=== PATIENT | female | born 1970 | race Caucasian/White ===

== ENCOUNTER 2017-09-17 10:49 | Emergency (ER) | payer OTHER ==
[~2017-09-17] VITALS: Ht 167.6 cm; Wt 59.0 kg
[~2017-09-17 10:49] MED LIST: ALBIPROI; ALBU.083IS; ALBU3IS; ALBU3IS INH; ALBU90OI; ALBU90OI6; ALBU90OI6 INH; BENZ100A PO; Bactrim Ds Tab1 EACH PO; CEPH500; CEPH500 PO; CIPDEXSU; CIPR500 PO; CLIN150 PO; CODACE30 PO; CYCL10 PO; DIPH25 PO; DOXY100 PO; HYDACE5 PO; IBUP600 PO; IBUP800 PO; Keflex500 MG PO; LACT10SY PO; LORA1 PO; MONT10T PO; Mobic15 MG PO; NAPR500 PO; NEOPOLHCSU AD; Norco 5-325 Ta1 EACH PO; ONDA4 PO; ONDA8ODT MM; OXYACE5T; OXYACE5T PO; OXYACE7.5T PO; OXYC5 PO; PHENA200 PO; PROM25 PO; RANI150 PO; RXCEPH500 PO; RXCLIN PO; RXHYDACE PO; RXONDA4ODT MM; RXOXYACE PO; RXSULTRIDS PO; SULTRIDS PO; SULTRISS PO; TRAM50 PO; Vistaril25 MG PO; [UNRECOGNIZED DRUG - REMARK]
[2017-09-17] MEDS ORDERED: ERGO400 (10:56)
[2017-09-17] MEDS ORDERED: VITAMIN D32000 UNIT PO (11:00)
[2017-09-17] MEDS ORDERED: Hydroxyzine HCl50 MG PO (11:00)
[2017-09-17] MEDS ORDERED: MIRT15 PO (11:00)
[2017-09-17] MEDS ORDERED: PRISTIQ ER25 MG PO (11:01)
[2017-09-17] MEDS ORDERED: METPRE4DP PO (11:24)
[2017-09-17] MEDS ORDERED: Norco 5-325 Ta1 EACH PO (11:24)
== END 2017-09-17 11:32 | disposition home or self-care (01) ==
LOC: ER 10:49
DX: M25.511 Pain in right shoulder (principal); Z91.048 Other nonmedicinal substance allergy status; Z88.5 Allergy status to narcotic agent; Z91.013 Allergy to seafood; Z79.899 Other long term (current) drug therapy; J45.909 Unspecified asthma, uncomplicated
CPT/HCPCS: 99283

== ENCOUNTER 2017-09-18 04:29 | Emergency (ER) | payer OTHER ==
[~2017-09-18] VITALS: Ht 165.1 cm; Wt 63.5 kg
[~2017-09-18 04:29] MED LIST changes: +ERGO400; +Hydroxyzine HCl50 MG PO; +METPRE4DP PO; +MIRT15 PO; +PRISTIQ ER25 MG PO; +VITAMIN D32000 UNIT PO
== END 2017-09-18 05:17 | disposition home or self-care (01) ==
LOC: ER 04:29
DX: M79.605 Pain in left leg (principal); M79.604 Pain in right leg; R11.0 Nausea; Z88.8 Allergy status to other drugs, medicaments and biological substances; Z88.5 Allergy status to narcotic agent; Z91.048 Other nonmedicinal substance allergy status; Z79.899 Other long term (current) drug therapy; Z79.52 Long term (current) use of systemic steroids; J45.909 Unspecified asthma, uncomplicated
CPT/HCPCS: 96372; 99283; J1885

== ENCOUNTER 2017-11-01 12:57 | Emergency (ER) | payer OTHER ==
[~2017-11-01] VITALS: Ht 165.1 cm; Wt 65.8 kg
== END 2017-11-01 14:15 | disposition home or self-care (01) ==
LOC: ER 12:57
DX: S90.821A Blister (nonthermal), right foot, initial encounter (principal); W60.XXXA Contact with nonvenomous plant thorns and spines and sharp leaves, initial encounter; Z91.048 Other nonmedicinal substance allergy status; Z88.5 Allergy status to narcotic agent; Z79.899 Other long term (current) drug therapy; J45.909 Unspecified asthma, uncomplicated
CPT/HCPCS: 99282

== ENCOUNTER 2017-12-24 14:04 | Emergency (ER) | payer OTHER ==
[~2017-12-24] VITALS: Ht 165.1 cm; Wt 68.0 kg
== END 2017-12-24 17:10 | disposition home or self-care (01) ==
LOC: ER 14:04
DX: M25.532 Pain in left wrist (principal); M25.521 Pain in right elbow; W11.XXXA Fall on and from ladder, initial encounter; Z91.048 Other nonmedicinal substance allergy status; Z88.5 Allergy status to narcotic agent; Z91.013 Allergy to seafood; Z79.899 Other long term (current) drug therapy; J45.909 Unspecified asthma, uncomplicated
CPT/HCPCS: 73080; 73110; 73630; 99283-25

== ENCOUNTER 2018-10-17 23:24 | Inpatient (IN) | payer OTHER ==
[~2018-10-17] VITALS: Ht 165.1 cm; Wt 65.8 kg
[2018-10-18 00:54] LABS: BASOPHILS ABSOLUTE AUTO 0.02 K/mm3 (0.00-0.23); BASOPHILS PERCENT AUTO 0 % (0-2); EOSINOPHILS ABSOLUTE AUTO 0.01 K/mm3 (0.00-0.68); EOSINOPHILS PERCENT AUTO 0 % (0-6); Hematocrit 32.1 % (33.0-51.0); Hemoglobin 10.5 g/dL (11.5-16.0); IMMATURE GRAN ABSOLUTE AUTO 0.08 K/mm3 (0.00-0.10); IMMATURE GRAN PERCENT AUTO 1 % (0-1); LYMPHOCYTES ABSOLUTE AUTO 0.77 K/mm3 (0.84-5.20); LYMPHOCYTES PERCENT AUTO 9 % (21-46); MONOCYTES ABSOLUTE AUTO 0.94 K/mm3 (0.16-1.47); MONOCYTES PERCENT AUTO 11 % (4-13); Mean Corpuscular HGB 28.3 pg (26.0-34.0); Mean Corpuscular HGB Conc 32.7 g/dL (31.5-36.5); Mean Corpuscular Volume 87 fL (80-100); Mean Platelet Volume 11.1 fL (9.1-12.4); NEUTROPHILS ABSOLUTE AUTO 7.16 K/mm3 (1.96-9.15); NEUTROPHILS PERCENT AUTO 80 % (41-73); Platelet Count 198 K/mm3 (150-400); RDW Coefficient Variation 14.1 % (11.7-14.2); RDW Standard Deviation 44.4 fL (35.1-46.3); Red Blood Cell Count 3.71 M/mm3 (3.80-5.20); White Blood Cell Count 8.98 K/mm3 (4.00-11.30)
[2018-10-18 01:01] LABS: Source, Urine Clean Catch
[2018-10-18 01:04] LABS: Bilirubin, Urine Neg (Neg); Blood, Urine 5+ (Neg); Glucose Qualitative, Urine Neg (Neg); Ketones, Urine Neg (Neg); Leukocyte Esterase, Urine 3+ (Neg); Nitrite, Urine Pos (Neg); Protein, Urine 3+ (Neg); Urobilinogen, Urine 4+ (Normal)
[2018-10-18 01:06] LABS: Appearance, Urine Cloudy (Clear); Color, Urine Yellow (P-Yellow)
[2018-10-18 01:12] LABS: Albumin, Blood 2.7 g/dL (3.4-5.0); Albumin/Globulin Ratio 0.6 (0.8-1.8); Bilirubin, Total 0.8 mg/dL (0.1-1.0); Calcium, Blood 8.2 mg/dL (8.5-10.1); Creatinine, Blood 1.08 mg/dL (0.40-1.00); Globulin, Blood 4.3 g/dL (2.2-4.0); Potassium, Blood 3.1 mmol/L (3.5-5.5)
[2018-10-18 01:19] LABS: Bacteria Many /hpf; Squamous Epithelial Cells Not Seen /hpf (Few); White Blood Cells, Urine TNTC /hpf (0-5)
--- NOTE | 2018-10-18 04:08 | NUR ---
BRIGHT RED URINE. RN IN ROOM WHEN PATIENT USED RESTROOM.
[2018-10-18 04:41] LABS: BASOPHILS ABSOLUTE AUTO 0.04 K/mm3 (0.00-0.23); BASOPHILS PERCENT AUTO 1 % (0-2); EOSINOPHILS PERCENT AUTO 0 % (0-6); Hematocrit 33.2 % (33.0-51.0); Hemoglobin 10.7 g/dL (11.5-16.0); IMMATURE GRAN ABSOLUTE AUTO 0.06 K/mm3 (0.00-0.10); IMMATURE GRAN PERCENT AUTO 1 % (0-1); LYMPHOCYTES ABSOLUTE AUTO 0.79 K/mm3 (0.84-5.20); LYMPHOCYTES PERCENT AUTO 10 % (21-46); MONOCYTES ABSOLUTE AUTO 0.93 K/mm3 (0.16-1.47); MONOCYTES PERCENT AUTO 11 % (4-13); Mean Corpuscular HGB 28.3 pg (26.0-34.0); Mean Corpuscular HGB Conc 32.2 g/dL (31.5-36.5); Mean Corpuscular Volume 88 fL (80-100); Mean Platelet Volume 11.2 fL (9.1-12.4); NEUTROPHILS ABSOLUTE AUTO 6.36 K/mm3 (1.96-9.15); NEUTROPHILS PERCENT AUTO 78 % (41-73); Platelet Count 187 K/mm3 (150-400); RDW Coefficient Variation 14.3 % (11.7-14.2); RDW Standard Deviation 45.8 fL (35.1-46.3); Red Blood Cell Count 3.78 M/mm3 (3.80-5.20); White Blood Cell Count 8.18 K/mm3 (4.00-11.30)
[2018-10-18 04:56] LABS: Anion Gap 8 mmol/L (6-16); Blood Urea Nitrogen 13 mg/dL (8-24); CO2, Blood 23 mmol/L (21-32); Calcium, Blood 7.8 mg/dL (8.5-10.1); Chloride, Blood 107 mmol/L (98-108); Glomerular Filtration Rate >60 (60-); Glucose, Blood 116 mg/dL (70-99); Potassium, Blood 3.3 mmol/L (3.5-5.5); Sodium, Blood 138 mmol/L (136-145)
--- NOTE | 2018-10-18 17:24 | NUR ---
SHIFT SUMMARY PT HAS DONE WELL THIS SHIFT. MEDICATED FOR PAIN ONCE WITH 50MG ULTRAM AND FOR TMAX 101.9 WITH IBUPROFEN, PT HAS CONTINUED TO SLEEP SOUNDLY SINCE ADMINISTRATION OF THESE MEDICATIONS. VSS. IVF NS RUNNING 150/HR. WILL DROP RATE TO 50/HR AFTER THIS BAG AND DC AFTER 1 MORE LITER NS. CONTINUE WITH IV ABX FOR POSITIVE BLOOD CULTURES.
[2018-10-19 05:06] LABS: BASOPHILS ABSOLUTE AUTO 0.03 K/mm3 (0.00-0.23); BASOPHILS PERCENT AUTO 0 % (0-2); EOSINOPHILS ABSOLUTE AUTO 0.06 K/mm3 (0.00-0.68); EOSINOPHILS PERCENT AUTO 1 % (0-6); Hematocrit 34.2 % (33.0-51.0); Hemoglobin 10.5 g/dL (11.5-16.0); IMMATURE GRAN ABSOLUTE AUTO 0.08 K/mm3 (0.00-0.10); IMMATURE GRAN PERCENT AUTO 1 % (0-1); LYMPHOCYTES ABSOLUTE AUTO 0.68 K/mm3 (0.84-5.20); LYMPHOCYTES PERCENT AUTO 8 % (21-46); MONOCYTES ABSOLUTE AUTO 0.96 K/mm3 (0.16-1.47); MONOCYTES PERCENT AUTO 12 % (4-13); Mean Corpuscular HGB 27.4 pg (26.0-34.0); Mean Corpuscular HGB Conc 30.7 g/dL (31.5-36.5); Mean Corpuscular Volume 89 fL (80-100); Mean Platelet Volume 11.7 fL (9.1-12.4); NEUTROPHILS ABSOLUTE AUTO 6.41 K/mm3 (1.96-9.15); NEUTROPHILS PERCENT AUTO 78 % (41-73); Platelet Count 205 K/mm3 (150-400); RDW Coefficient Variation 14.7 % (11.7-14.2); RDW Standard Deviation 48.2 fL (35.1-46.3); Red Blood Cell Count 3.83 M/mm3 (3.80-5.20); White Blood Cell Count 8.22 K/mm3 (4.00-11.30)
[2018-10-19 05:23] LABS: Anion Gap 6 mmol/L (6-16); Blood Urea Nitrogen 9 mg/dL (8-24); Bun/Creatinine Ratio 11.6 (12.0-20.0); CO2, Blood 23 mmol/L (21-32); Chloride, Blood 104 mmol/L (98-108); Creatinine, Blood 0.78 mg/dL (0.40-1.00); Glomerular Filtration Rate >60 (60-); Glucose, Blood 97 mg/dL (70-99); Potassium, Blood 4.2 mmol/L (3.5-5.5); Sodium, Blood 133 mmol/L (136-145)
--- NOTE | 2018-10-19 07:47 | NUR ---
SHIFT SUMMARY PT RESTED WELL T/O SHIFT. AAOX4. TEMP OF 100.3 NOTED THIS AM. IVF + ABX PER ORDERS. PT UP TO RESTROOM TO TAKE SHOWER + X1 LARGE BM THIS SHIFT. PAIN CONTROLLED WITH 1 TRAMADOL X2. NO ACUTE CHANGES THIS SHIFT. PT RESTING AT THIS TIME. REPORT TO JORDY BRAR. CALL LIGHT WITHIN PT'S REACH.
--- NOTE | 2018-10-19 14:24 | NUR ---
SHIFT SUMMARY PT HAS DONE WELL THIS SHIFT. MEDICATED WITH IBUPROFEN FOR TMAX 102.8. PT APPEARS TO BE SLEEPING RESTFULLY. UP TO SHOWER. IVF 50/HR RUNNING. IV ABX ORDERED.
--- NOTE | 2018-10-20 00:27 | NUR ---
PROVIDER COMMUNICATION [id number] ESPARZA OVER PHONE IF PT SHOULD BE ON TELEMETRY PER DAY SHIFT HOSPITALIST, DR. CONTRERAS'S NOTE. NOTIFIED DR. ESPARZA OF PT DX OF SEPSIS, UTI, POSATIVE BLOOD CULTURES, OCC TEMP., HX IV METH USE AND SYSTOLIC BP'S ONE-TEENS/ONE-TWENTIES AND AVG HR 80-90'S. NO TELEMETRY NEEDED PER DR. ESPARZA.
--- NOTE | 2018-10-20 04:36 | NUR ---
SHIFT SUMMARY PT A&O X4 T/O SHIFT. VSS; SLIGHT ELEVATED TEMP AT 100.9 AT START OF SHIFT, RESOLVED. GENERALIZED PAIN MANAGED PER EMAR. PT INDEPDENT IN ROOM. SCD'S TO BLE'S. CALL LIGHT IN REACH; PT DEMONSTRATES USE. WCTM UNTIL REPORT TO DAY SHIFT RN.
--- NOTE | 2018-10-20 16:46 | NUR ---
SHIFT SUMMARY PT HAS BEEN VERY DROWSY TODAY BUT WAKES EASILY. UP TO SHOWER. WAS NAUSEATED AFTER LUNCH BUT DECLINED ZOFRAN, REQUESTING MOTRIN FOR A HEADACHE.
[2018-10-21 04:19] LABS: BASOPHILS ABSOLUTE AUTO 0.03 K/mm3 (0.00-0.23); BASOPHILS PERCENT AUTO 0 % (0-2); EOSINOPHILS ABSOLUTE AUTO 0.18 K/mm3 (0.00-0.68); EOSINOPHILS PERCENT AUTO 2 % (0-6); Hematocrit 34.3 % (33.0-51.0); Hemoglobin 10.7 g/dL (11.5-16.0); IMMATURE GRAN ABSOLUTE AUTO 0.07 K/mm3 (0.00-0.10); IMMATURE GRAN PERCENT AUTO 1 % (0-1); LYMPHOCYTES ABSOLUTE AUTO 0.71 K/mm3 (0.84-5.20); LYMPHOCYTES PERCENT AUTO 9 % (21-46); MONOCYTES ABSOLUTE AUTO 0.77 K/mm3 (0.16-1.47); MONOCYTES PERCENT AUTO 10 % (4-13); Mean Corpuscular HGB 27.8 pg (26.0-34.0); Mean Corpuscular HGB Conc 31.2 g/dL (31.5-36.5); Mean Corpuscular Volume 89 fL (80-100); Mean Platelet Volume 11.4 fL (9.1-12.4); NEUTROPHILS ABSOLUTE AUTO 5.92 K/mm3 (1.96-9.15); NEUTROPHILS PERCENT AUTO 77 % (41-73); Platelet Count 284 K/mm3 (150-400); RDW Standard Deviation 49.6 fL (35.1-46.3); Red Blood Cell Count 3.85 M/mm3 (3.80-5.20); White Blood Cell Count 7.68 K/mm3 (4.00-11.30)
[2018-10-21 04:34] LABS: Anion Gap 6 mmol/L (6-16); Blood Urea Nitrogen 9 mg/dL (8-24); Bun/Creatinine Ratio 14.2 (12.0-20.0); CO2, Blood 26 mmol/L (21-32); Chloride, Blood 105 mmol/L (98-108); Creatinine, Blood 0.64 mg/dL (0.40-1.00); Glomerular Filtration Rate >60 (60-); Glucose, Blood 110 mg/dL (70-99); Magnesium, Blood 1.9 mg/dL (1.6-2.4); Sodium, Blood 137 mmol/L (136-145)
--- NOTE | 2018-10-21 06:50 | NUR ---
SHIFT SUMMARY HAD A SECOND NOSE BLEED THIS SHIFT. PRESSURE APPLIED, AND HUMIDITY ADDED. DENIES FURTHER NEEDS OR WANTS AT THIS TIME. SAFETY MEASURES IN PLACE. WILL GIVE HAND OFF TO ONCOMING SHIFT USING SBAR.
--- NOTE | 2018-10-21 07:01 | NUR ---
SHIFT SUMMARY HAS RESTED WITH EASE. REFUSED HS STOOL SOFTENER. DENIES FURTHER NEEDS OR WANTS AT THIS TIME. SAFETY MEASURES IN PLACE. WILL GIVE HAND OFF TO ONCOMING SHIFT USING SBAR.
--- NOTE | 2018-10-21 07:15 | NUR ---
PATIENT IS NOW RESTING.
--- NOTE | 2018-10-21 11:40 | NUR ---
GIRS PT IS VERY THANKFUL AND APPRECIATIVE BUT STATES SHE HAS TO LEAVE NOW. PT ASKED TO HAVE HER IV OUT AND THEN WALKED OUT FAST. STATES SHE NEEDED TO GO FIND HER BELONGINGS AND ID THAT WAS LEFT ON THE STREETS. DECLINES TO WAIT TO SIGN GRIS PAPERS. DR CONTRERAS NOTIFIED.
== END 2018-10-21 11:45 | disposition left against medical advice (07) | DRG 872 ==
LOC: ER 23:24 → SURS 10-18 03:50
PROVIDERS: Internal Medicine; Physician Assistant; ADMIT Hospitalist
DX: A41.51 Sepsis due to Escherichia coli [E. coli] (principal); N39.0 Urinary tract infection, site not specified; E87.1 Hypo-osmolality and hyponatremia; R65.20 Severe sepsis without septic shock; F19.10 Other psychoactive substance abuse, uncomplicated; G89.29 Other chronic pain; M25.511 Pain in right shoulder; I10 Essential (primary) hypertension; J45.20 Mild intermittent asthma, uncomplicated; E87.6 Hypokalemia; D64.9 Anemia, unspecified; Z59.0 Homelessness
CPT/HCPCS: 36415; 71046; 73030; 80048; 80053; 81001; 81025; 83605; 83735; 84145; 84484; 85025; 87040; 87077; 87086; 87186; 93005; 93010; 96365; 96375; 99285-25; J0696; J1650; J1885; J3370; J3480; J7030; J7050

== ENCOUNTER 2018-11-07 21:29 | Emergency (ER) | payer OTHER ==
[~2018-11-07] VITALS: Ht 165.1 cm; Wt 65.8 kg
[2018-11-07 23:53] LABS: Source, Urine Clean Catch
[2018-11-07 23:56] LABS: Bilirubin, Urine Neg (Neg); Blood, Urine 1+ (Neg); Glucose Qualitative, Urine Neg (Neg); Ketones, Urine Neg (Neg); Leukocyte Esterase, Urine 3+ (Neg); Nitrite, Urine Neg (Neg); Protein, Urine 1+ (Neg); Specific Gravity, Urine 1.025 (1.003-1.022); Urobilinogen, Urine 1+ (Normal)
[2018-11-07 23:58] LABS: Appearance, Urine Hazy (Clear); Color, Urine Yellow (P-Yellow)
[2018-11-08 00:16] LABS: Bacteria Few /hpf; Red Blood Cells, Urine 0-2 /hpf (0-2); Squamous Epithelial Cells Few /hpf (Few); Trichomonas Mod /hpf; White Blood Cells, Urine TNTC /hpf (0-5)
[2018-11-08 02:10] LABS: BASOPHILS ABSOLUTE AUTO 0.02 K/mm3 (0.00-0.23); BASOPHILS PERCENT AUTO 0 % (0-2); EOSINOPHILS PERCENT AUTO 4 % (0-6); Hematocrit 33.1 % (33.0-51.0); Hemoglobin 10.3 g/dL (11.5-16.0); IMMATURE GRAN ABSOLUTE AUTO 0.02 K/mm3 (0.00-0.10); IMMATURE GRAN PERCENT AUTO 0 % (0-1); LYMPHOCYTES PERCENT AUTO 20 % (21-46); MONOCYTES ABSOLUTE AUTO 0.54 K/mm3 (0.16-1.47); MONOCYTES PERCENT AUTO 10 % (4-13); Mean Corpuscular HGB 27.8 pg (26.0-34.0); Mean Corpuscular HGB Conc 31.1 g/dL (31.5-36.5); Mean Corpuscular Volume 90 fL (80-100); Mean Platelet Volume 9.6 fL (9.1-12.4); NEUTROPHILS ABSOLUTE AUTO 3.66 K/mm3 (1.96-9.15); NEUTROPHILS PERCENT AUTO 66 % (41-73); Platelet Count 265 K/mm3 (150-400); RDW Coefficient Variation 15.4 % (11.7-14.2); White Blood Cell Count 5.54 K/mm3 (4.00-11.30)
[2018-11-08 02:26] LABS: Alanine Aminotransfer (ALT/SGP 122 U/L (12-78); Albumin, Blood 2.8 g/dL (3.4-5.0); Albumin/Globulin Ratio 0.8 (0.8-1.8); Alk Phos 53 U/L (50-136); Anion Gap 6 mmol/L (6-16); Aspartate Aminotrans (AST/SGOT 91 U/L (12-37); Bilirubin, Total 0.4 mg/dL (0.1-1.0); Blood Urea Nitrogen 14 mg/dL (8-24); Bun/Creatinine Ratio 19.8 (12.0-20.0); CO2, Blood 24 mmol/L (21-32); Calcium, Blood 8.3 mg/dL (8.5-10.1); Chloride, Blood 109 mmol/L (98-108); Creatinine, Blood 0.71 mg/dL (0.40-1.00); Globulin, Blood 3.7 g/dL (2.2-4.0); Glomerular Filtration Rate >60 (60-); Glucose, Blood 101 mg/dL (70-99); Potassium, Blood 3.6 mmol/L (3.5-5.5); Sodium, Blood 139 mmol/L (136-145); Total Protein, Blood 6.5 g/dL (6.4-8.2)
[2018-11-08] MEDS ORDERED: Keflex500 MG PO (03:32)
== END 2018-11-08 04:03 | disposition home or self-care (01) ==
LOC: ER 21:29
PROVIDERS: Emergency Medicine; Physician Assistant
DX: N39.0 Urinary tract infection, site not specified (principal); A59.09 Other urogenital trichomoniasis; J45.909 Unspecified asthma, uncomplicated; Z91.048 Other nonmedicinal substance allergy status; Z88.6 Allergy status to analgesic agent; Z91.013 Allergy to seafood; Z88.5 Allergy status to narcotic agent
CPT/HCPCS: 36415; 80053; 81001; 81025; 83690; 83735; 85025; 87086; 96361; 96365; 96375; 99284-25; A9270-GY; J0696; J0780; J1200; J1885; J7120

== ENCOUNTER 2020-03-29 23:33 | Emergency (ER) | payer OTHER ==
[~2020-03-29] VITALS: Ht 165.1 cm; Wt 70.3 kg
[~2020-03-29 23:33] MED LIST changes: +ALBU90OI INH; +ALLERCLEAR10 MG PO
[2020-03-30] MEDS ORDERED: Prednisone50 MG PO (01:00)
== END 2020-03-30 01:11 | disposition home or self-care (01) ==
LOC: ER 23:33
DX: J45.901 Unspecified asthma with (acute) exacerbation (principal); Z79.899 Other long term (current) drug therapy; Z91.09 Other allergy status, other than to drugs and biological substances; Z91.030 Bee allergy status; Z91.013 Allergy to seafood; Z88.5 Allergy status to narcotic agent
CPT/HCPCS: 94640; 94664; 99283; J7512

== ENCOUNTER 2020-09-13 00:57 | Emergency (ER) | payer OTHER ==
[~2020-09-13] VITALS: Ht 165.1 cm; Wt 68.0 kg
[~2020-09-13 00:57] MED LIST changes: +Prednisone50 MG PO
[2020-09-13] MEDS ORDERED: LIDO700A20 TOP (04:46)
[2020-09-13] MEDS ORDERED: IBUP600 PO (04:46)
== END 2020-09-13 04:55 | disposition home or self-care (01) ==
LOC: ER 00:57
DX: M79.631 Pain in right forearm (principal); R07.81 Pleurodynia; J45.909 Unspecified asthma, uncomplicated; Z88.6 Allergy status to analgesic agent; Z91.09 Other allergy status, other than to drugs and biological substances; Z88.5 Allergy status to narcotic agent; Z79.52 Long term (current) use of systemic steroids; Z91.030 Bee allergy status; Z79.899 Other long term (current) drug therapy
CPT/HCPCS: 71101; 73090; 99283-25; A9270

== ENCOUNTER 2021-07-30 11:51 | Emergency (ER) | payer OTHER ==
[~2021-07-30] VITALS: Ht 165.1 cm; Wt 72.6 kg
[~2021-07-30 11:51] MED LIST changes: +LIDO700A20 TOP
[2021-07-30] MEDS ORDERED: IBUP400 PO (15:34)
[2021-07-30] MEDS ORDERED: OCUFLOX5 M9 LEFTEYE (15:34)
== END 2021-07-30 15:41 | disposition home or self-care (01) ==
LOC: ER 11:51
DX: S05.02XA Injury of conjunctiva and corneal abrasion without foreign body, left eye, initial encounter (principal); J45.909 Unspecified asthma, uncomplicated; Z79.899 Other long term (current) drug therapy; X58.XXXA Exposure to other specified factors, initial encounter
CPT/HCPCS: 96372; 99282-25; A9270; J1885

== ENCOUNTER 2021-11-22 18:15 | Emergency (ER) | payer OTHER ==
[~2021-11-22] VITALS: Ht 165.1 cm; Wt 65.8 kg
[~2021-11-22 18:15] MED LIST changes: +IBUP400 PO; +OCUFLOX5 M9 LEFTEYE
[2021-11-22] MEDS ORDERED: CEPH500 PO (18:40)
== END 2021-11-22 18:46 | disposition home or self-care (01) ==
LOC: ER 18:15
DX: L03.116 Cellulitis of left lower limb (principal); Z91.030 Bee allergy status; Z91.09 Other allergy status, other than to drugs and biological substances; Z88.8 Allergy status to other drugs, medicaments and biological substances; Z91.013 Allergy to seafood; Z88.5 Allergy status to narcotic agent
CPT/HCPCS: 96372; 99283-25; A9270; J1885

== ENCOUNTER → 2022-02-06 | Outpatient (CLI) | payer OTHER ==
[2022-02-06 17:18] LABS: Source, Urine Clean Catch
[2022-02-06 18:57] LABS: Appearance, Urine Hazy (Clear); Bilirubin, Urine Neg (Neg); Blood, Urine 1+ (Neg); Color, Urine Yellow (P-Yellow); Glucose Qualitative, Urine Neg (Neg); Ketones, Urine Neg (Neg); Leukocyte Esterase, Urine 2+ (Neg); Nitrite, Urine Neg (Neg); Protein, Urine 1+ (Neg); Specific Gravity, Urine 1.025 (1.003-1.022); Urobilinogen, Urine 1+ (Normal)
[2022-02-06 19:13] LABS: Bacteria Mod /hpf; Calcium Oxalate Crystals Few /hpf; Renal Epithelial Few /hpf (0-Rare); Squamous Epithelial Cells Mod /hpf (Few); Transitional Epithelial Cells Rare /hpf (0-Rare)
[2022-02-07 10:38] LABS: Candida species (DNA Probe) Negative (NEGATIVE); G. vaginalis (DNA Probe) Positive (NEGATIVE); T. vaginalis (DNA Probe) Positive (NEGATIVE)
[2022-02-08 08:12] LABS: CHLAMYDIA TRACHOMATIS, NAA Negative (Negative)
== END | disposition home or self-care (01) ==
LOC: LAB 16:42 → LAB SHORT 16:42
PROVIDERS: Advanced Practice Midwife
DX: Z11.3 Encounter for screening for infections with a predominantly sexual mode of transmission (principal); N76.0 Acute vaginitis; R35.0 Frequency of micturition
CPT/HCPCS: 81001; 87086; 87480; 87491; 87510; 87591; 87660

== ENCOUNTER 2022-02-20 12:54 | Emergency (ER) | payer OTHER ==
[~2022-02-20] VITALS: Ht 165.1 cm; Wt 64.4 kg
== END 2022-02-20 14:35 | disposition home or self-care (01) ==
LOC: ER 12:54
DX: S80.812A Abrasion, left lower leg, initial encounter (principal); Z91.013 Allergy to seafood; Z91.09 Other allergy status, other than to drugs and biological substances; Z91.030 Bee allergy status; X58.XXXA Exposure to other specified factors, initial encounter; Z59.00 Homelessness unspecified
CPT/HCPCS: 99282

== ENCOUNTER 2022-03-23 15:53 | Emergency (ER) | payer OTHER ==
[~2022-03-23] VITALS: Ht 165.1 cm; Wt 65.8 kg
[2022-03-23] MEDS ORDERED: SULTRIDS PO (19:12)
== END 2022-03-23 19:30 | disposition home or self-care (01) ==
LOC: ER 15:53
DX: L03.116 Cellulitis of left lower limb (principal); Z88.8 Allergy status to other drugs, medicaments and biological substances; Z91.048 Other nonmedicinal substance allergy status; Z91.030 Bee allergy status; Z88.5 Allergy status to narcotic agent; J45.909 Unspecified asthma, uncomplicated
CPT/HCPCS: A9270

== ENCOUNTER 2022-12-13 01:17 | Emergency (ER) | payer OTHER ==
[~2022-12-13] VITALS: Ht 165.1 cm; Wt 68.0 kg
[~2022-12-13 01:17] MED LIST changes: +Hydroxyzine HCl50 MG
[2022-12-13 01:43] VITALS: BP 184/110
[2022-12-13] MEDS ORDERED: CEPH500 PO (14:17)
[2022-12-13] MEDS ORDERED: Bactrim Ds Tab1 EACH PO (14:17)
== END 2022-12-13 02:23 | disposition home or self-care (01) ==
LOC: ER 01:17
DX: J34.89 Other specified disorders of nose and nasal sinuses (principal); Z88.8 Allergy status to other drugs, medicaments and biological substances; Z91.030 Bee allergy status; Z88.5 Allergy status to narcotic agent; Z91.048 Other nonmedicinal substance allergy status; Z79.899 Other long term (current) drug therapy; J45.909 Unspecified asthma, uncomplicated; J34.0 Abscess, furuncle and carbuncle of nose
CPT/HCPCS: 96372; 99283; 99283-25; A9270; J1885

== ENCOUNTER 2022-12-13 13:50 | Emergency (ER) | payer OTHER ==
[~2022-12-13] VITALS: Ht 165.1 cm; Wt 68.0 kg
[2022-12-13 14:03] VITALS: BP 186/123
[2022-12-13] MEDS ORDERED: CEPH500 PO (14:17)
[2022-12-13] MEDS ORDERED: Bactrim Ds Tab1 EACH PO (14:17)
== END 2022-12-13 14:39 | disposition home or self-care (01) ==
LOC: ER 13:50
DX: J34.0 Abscess, furuncle and carbuncle of nose (principal); Z88.8 Allergy status to other drugs, medicaments and biological substances; Z91.030 Bee allergy status; Z88.5 Allergy status to narcotic agent; Z91.048 Other nonmedicinal substance allergy status; Z79.899 Other long term (current) drug therapy; J45.909 Unspecified asthma, uncomplicated
CPT/HCPCS: A9270

== ENCOUNTER 2023-10-23 21:20 | Emergency (ER) | payer OTHER ==
[~2023-10-23] VITALS: Ht 165.1 cm; Wt 65.8 kg
[~2023-10-23 21:20] MED LIST changes: +Prinivil10 MG
[2023-10-23 21:36] VITALS: BP 176/103
[2023-10-23] MEDS ORDERED: Cephalexin Monohydrate 500 MG Cap PO ONE (22:15)
[2023-10-23] MEDS ORDERED: Ibuprofen 400 MG Tab PO ONE (22:15)
== END 2023-10-23 22:27 | disposition home or self-care (01) ==
LOC: ER 21:20
DX: L03.115 Cellulitis of right lower limb (principal); J45.909 Unspecified asthma, uncomplicated; F41.9 Anxiety disorder, unspecified; F32.A Depression, unspecified; Z79.899 Other long term (current) drug therapy; Z91.030 Bee allergy status; Z88.5 Allergy status to narcotic agent; Z91.013 Allergy to seafood; Z91.048 Other nonmedicinal substance allergy status
CPT/HCPCS: 99284; A9270

== ENCOUNTER 2024-01-10 03:47 | Emergency (ER) | payer OTHER ==
[~2024-01-10] VITALS: Ht 165.1 cm; Wt 63.5 kg
[2024-01-10 03:53] VITALS: BP 178/98
[2024-01-10] MEDS ORDERED: Ketorolac Tromethamine 30mg Vial IM ONE (04:50)
[2024-01-10] MEDS ORDERED: Cephalexin Monohydrate 500 MG Cap PO ONE (04:50)
[2024-01-10] MEDS ORDERED: Diphth,Pertuss(Acell),Tet Vac 0.5 ML VIAL IM ONE (05:05)
[2024-01-10] MEDS ORDERED: CEPH500 PO (05:11)
== END 2024-01-10 05:47 | disposition home or self-care (01) ==
LOC: ER 03:47
DX: S01.112A Laceration without foreign body of left eyelid and periocular area, initial encounter (principal); S01.21XA Laceration without foreign body of nose, initial encounter; J45.909 Unspecified asthma, uncomplicated; W01.0XXA Fall on same level from slipping, tripping and stumbling without subsequent striking against object, initial encounter; Z79.899 Other long term (current) drug therapy; Z91.030 Bee allergy status; Z88.5 Allergy status to narcotic agent; Z91.013 Allergy to seafood; Z91.048 Other nonmedicinal substance allergy status
CPT/HCPCS: 90471; 90715; 96372; 99282-25; A9270; J1885

== ENCOUNTER 2024-06-21 22:05 | Emergency (ER) | payer OTHER ==
[~2024-06-21] VITALS: Ht 165.1 cm; Wt 68.0 kg
[2024-06-21 22:48] VITALS: BP 168/109
[2024-06-22] MEDS ORDERED: Cephalexin Monohydrate 500 MG Cap PO ONE (00:30)
[2024-06-22] MEDS ORDERED: CEPH500 PO (00:32)
== END 2024-06-22 00:34 | disposition home or self-care (01) ==
LOC: ER 22:05
DX: S60.321A Blister (nonthermal) of right thumb, initial encounter (principal); W57.XXXA Bitten or stung by nonvenomous insect and other nonvenomous arthropods, initial encounter; J45.909 Unspecified asthma, uncomplicated; Z91.038 Other insect allergy status; Z88.6 Allergy status to analgesic agent; Z91.013 Allergy to seafood; Z91.048 Other nonmedicinal substance allergy status; Z88.5 Allergy status to narcotic agent; Z79.899 Other long term (current) drug therapy; Z79.2 Long term (current) use of antibiotics; Z79.51 Long term (current) use of inhaled steroids
CPT/HCPCS: 99282; A9270

== ENCOUNTER 2025-01-13 22:00 | Emergency (ER) | payer OTHER ==
[~2025-01-13] VITALS: Ht 165.1 cm; Wt 70.3 kg
[2025-01-13 22:42] VITALS: BP 162/111
== END 2025-01-14 00:41 | disposition left against medical advice (07) ==
LOC: ER 22:00
DX: T63.441A Toxic effect of venom of bees, accidental (unintentional), initial encounter (principal); Z53.29 Procedure and treatment not carried out because of patient's decision for other reasons
CPT/HCPCS: 99282-25